=== PATIENT | female | born 1975 | race Caucasian/White ===

== ENCOUNTER 2016-11-15 09:51 | Emergency (ER) | payer OTHER ==
[~2016-11-15] VITALS: Ht 162.6 cm; Wt 74.0 kg
[~2016-11-15 09:51] MED LIST: CARV3.12 PO; FLUO20CA4 PO; GABA100C4 PO; LEVE500 PO; LORA1TAB12 PO; VENTAER INH
[2016-11-15 09:53] VITALS: BP 159/75; PULSE 99; RESP 20; TEMP 98.1; O2SAT 99
[2016-11-15] MEDS ORDERED: SODIUM CHLOR 0.9% 1000 ML INJ 1,000 ML IV SCH (10:22)
[2016-11-15] MEDS ORDERED: KETOROLAC TROMETHAMINE 30 MG/ML (IVP) VIAL IVP ONE (10:30)
[2016-11-15] MEDS ORDERED: SODIUM CHLORIDE 0.9% FLUSH 5 ML FLUSH IVF PRN (10:30)
[2016-11-15 10:50] LABS: AUTOMATED NEUTROPHIL # 3.3 TH/MM3 (1.8-7.7); BASOPHIL % 0.5 % (0.0-2.0); EOSINOPHIL # 0.4 TH/MM3 (0-0.4); HEMO FLAGS DIFF FINAL; LYMPH % 22.4 % (9.0-44.0); LYMPHOCYTE # 1.2 TH/MM3 (1.0-4.8); MEAN CELL VOLUME 92.9 FL (80.0-100.0); MEAN CORPUSCULAR HEMOGLOBIN 32.5 PG (27.0-34.0); MONO % 7.5 % (0.0-8.0); NEUT % 61.6 % (16.0-70.0); PLATELET COUNT 161 TH/MM3 (150-450); RED BLOOD COUNT 3.87 MIL/MM3 (4.00-5.30); RED CELL DISTRIBUTION WIDTH 12.6 % (11.6-17.2); WHITE BLOOD COUNT 5.4 TH/MM3 (4.0-11.0)
[2016-11-15 10:50] LABS: BACTERIA, URINE MOD /hpf; BLOOD, URINE NEG (NEG); COMMENT (UR) CULTURE INDICATED; CULTURE IF INDICATED CULTURE INDICATED; GLUCOSE,URINE NEG (NEG); KETONE, URINE NEG (NEG); MUCUS URINE FEW /lpf (OCC); NITRITE,URINE NEG (NEG); PH, URINE 5.5 (5.0-8.5); SQUAMOUS EPITHELIAL CELL URINE 4 /hpf (0-5); URINE COLOR YELLOW (YELLW/STRAW)
--- NOTE | 2016-11-15 10:59 | PD ---
HPI Chief Complaint: Flank/Kidney Pain Time Seen by Provider: 10:22 Travel History International Travel<30 days: No Contact w/Intl Traveler<30days: No Traveled to known affect area: No History of Present Illness HPI Patient 41-year-old female presents with bilateral flank pain as well as dysuria for the past few days. Patient is concerned because she has had pyelonephritis in the past and need for admission secondary to sepsis. Patient denies any nausea or vomiting. Denies history of kidney stones. Denies history of fever. Patient states symptoms began gradually worsening. Sharp in nature. PFSH Past Medical History Arthritis: Yes (OSTEOARTHRITIS) Asthma: Yes Blood Disorders: No Anxiety: Yes Depression: No Cancer: No Cardiovascular Problems: Yes (HTN) COPD: No Cerebrovascular Accident: No Diminished Hearing: No Endocrine: No Gastrointestinal Disorders: Yes (GB DISEASE) GERD: No Genitourinary: Yes Headaches: Yes Hepatitis: No Hiatal Hernia: No Hypertension: Yes (ONLY WITH PRE-ECLAMPSIA) Immune Disorder: No Implanted Vascular Access Dvce: No Kidney Stones: No Musculoskeletal: Yes Neurologic: Yes Psychiatric: Yes Reproductive: No Respiratory: Yes (ASTHMA) Migraines: No Renal Failure: No Seizures: Yes Sleep Apnea: No Ulcer: Yes Influenza Vaccination: No ?: LMP: 11/08/16 : 5 Para: 5 Tubal Ligation: Yes Past Surgical History Abdominal Surgery: Yes (COILS IN STOMACH) AICD: No Appendectomy: No Arteriovenous Shunt: No Cardiac Surgery: No Cholecystectomy: No Ear Surgery: No Endocrine Surgery: No Eye Surgery: No Genitourinary Surgery: No Gynecologic Surgery: Yes (TUBAL LIGATION) Hysterectomy: No Insulin Pump: No Joint Replacement: No Neurologic Surgery: No Oral Surgery: No Pacemaker: No Thoracic Surgery: No Other Surgery: Yes (PERF ULCER) Social History Alcohol Use: Yes (OCCASIONALLY) Tobacco Use: No Substance Use: Yes (MARIJUANA, RARELY) Allergies-Medications (Allergen,Severity, Reaction): Coded Allergies: Penicillin (Verified Allergy, Severe, CAN'T BREATHE, 08/15/16) Reported Meds & Prescriptions Reported Meds & Active Scripts Active Cipro (Ciprofloxacin HCl) 500 Mg Tab 500 Mg PO BID 7 Days Reported Ventolin Hfa 18 GM Inh (Albuterol Sulfate) 90 Mcg/Act Aer 2 Puff INH Q4H PRN Lorazepam 1 Mg Tab 1 Mg PO DAILY PRN Fluoxetine (Fluoxetine HCl) 20 Mg Cap 20 Mg PO DAILY Carvedilol 3.125 Mg Tab 3.125 Mg PO BID Keppra (Levetiracetam) 500 Mg Tab 500 Mg PO BID Gabapentin 100 Mg Cap 100 Mg PO TID Review of Systems Except as stated in HPI: all other systems reviewed are Neg Physical Exam Narrative GENERAL: Well-developed well-nourished no apparent distress SKIN: Warm and dry. HEAD: Atraumatic. Normocephalic. EYES: Pupils equal and round. No scleral icterus. No injection or drainage. ENT: No nasal bleeding or discharge. Mucous membranes pink and moist. NECK: Trachea midline. No JVD. CARDIOVASCULAR: Regular rate and rhythm. No murmur appreciated. RESPIRATORY: No accessory muscle use. Clear to auscultation. Breath sounds equal bilaterally. GASTROINTESTINAL: Abdomen soft, non-tender, nondistended. Hepatic and splenic margins not palpable. No CVA tenderness. MUSCULOSKELETAL: No obvious deformities. No clubbing. No cyanosis. No edema. NEUROLOGICAL: Awake and alert. No obvious cranial nerve deficits. Motor grossly within normal limits. Normal speech. PSYCHIATRIC: Appropriate mood and affect; insight and judgment normal. Data Data Last Documented VS Vital Signs Date Time Temp Pulse Resp B/P Pulse Ox O2 Delivery O2 Flow Rate FiO2 11/15/16 12:30 80 15 147/87 98 11/15/16 09:53 98.1 Room Air Orders Complete Blood Count With Diff (11/15/16 10:22) Comprehensive Metabolic Panel (11/15/16 10:22) Lactic Acid (11/15/16 10:22) Urinalysis - C+S If Indicated (11/15/16 10:22) Iv Access Insert/Monitor (11/15/16 10:22) Ecg Monitoring (11/15/16 10:22) Oximetry (11/15/16 10:22) Sodium Chlor 0.9% 1000 Ml Inj (Ns 1000 M (11/15/16 10:22) Sodium Chloride 0.9% Flush (Ns Flush) (11/15/16 10:30) Ketorolac Inj (Toradol Inj) (11/15/16 10:30) Ed Urine Pregnancytest Poc (11/15/16 10:22) Urine Culture (11/15/16 10:30) Ciprofloxacin (Cipro) (11/15/16 11:30) Labs Laboratory Tests Test 11/15/16 11/15/16 10:25 10:30 White Blood Count 5.4 TH/MM3 Red Blood Count 3.87 MIL/MM3 Hemoglobin 12.6 GM/DL Hematocrit 36.0 % Mean Corpuscular Volume 92.9 FL Mean Corpuscular Hemoglobin 32.5 PG Mean Corpuscular Hemoglobin 35.0 % Concent Red Cell Distribution Width 12.6 % Platelet Count 161 TH/MM3 Mean Platelet Volume 8.4 FL Neutrophils (%) (Auto) 61.6 % Lymphocytes (%) (Auto) 22.4 % Monocytes (%) (Auto) 7.5 % Eosinophils (%) (Auto) 8.0 % Basophils (%) (Auto) 0.5 % Neutrophils # (Auto) 3.3 TH/MM3 Lymphocytes # (Auto) 1.2 TH/MM3 Monocytes # (Auto) 0.4 TH/MM3 Eosinophils # (Auto) 0.4 TH/MM3 Basophils # (Auto) 0.0 TH/MM3 CBC Comment DIFF FINAL Differential Comment Sodium Level 139 MEQ/L Potassium Level 3.8 MEQ/L Chloride Level 105 MEQ/L Carbon Dioxide Level 28.0 MEQ/L Anion Gap 6 MEQ/L Blood Urea Nitrogen 11 MG/DL Creatinine 0.84 MG/DL Estimat Glomerular Filtration 74 ML/MIN Rate Random Glucose 158 MG/DL Calcium Level 8.9 MG/DL Total Bilirubin 0.7 MG/DL Aspartate Amino Transf 51 U/L (AST/SGOT) Alanine Aminotransferase 43 U/L (ALT/SGPT) Alkaline Phosphatase 130 U/L Total Protein 7.3 GM/DL Albumin 3.1 GM/DL Urine Color YELLOW Urine Turbidity HAZY Urine pH 5.5 Urine Specific [place] 1.008 Urine Protein NEG mg/dL Urine Glucose (UA) NEG mg/dL Urine Ketones NEG mg/dL Urine Occult Blood NEG Urine Nitrite NEG Urine Bilirubin NEG Urine Urobilinogen LESS THAN 2.0 MG/DL Urine Leukocyte Esterase MOD Urine RBC 1 /hpf Urine WBC 31 /hpf Urine Squamous Epithelial 4 /hpf Cells Urine Bacteria MOD /hpf Urine Mucus FEW /lpf Microscopic Urinalysis Comment CULTURE INDICATED Lactic Acid Level 1.8 mmol/L MDM Medical Decision Making Medical Screen Exam Complete: Yes Emergency Medical Condition: Yes Differential Diagnosis UTI, pyelonephritis unlikely, kidney stone unlikely. Narrative Course Patient 41-year-old female presents with a lateral flank pain, dysuria. Patient had really has no CVA tenderness this time. Labs and vital signs are reassuring. Patient does have evidence for UTI. Will be placed on ciprofloxacin. There is no indication further workup at this time. Risks of CT radiation outweigh possible diagnostic benefits. Discussed findings with patient and the plan and she is agreeable this time. Follow-up primary care physician discussed return to ED criteria. Diagnosis Primary Impression: UTI (urinary tract infection) Qualified Code: N30.00 - Acute cystitis without hematuria Med/Other Pt SpecificInfo: Prescription(s) given Scripts Ciprofloxacin (Cipro)500 Mg [id number] Mg PO BID 7 Days Ref 0 Prov:Miguel Alva MD 11/15/16 Disposition: 01 DISCHARGE HOME Condition: Stable Miguel Alva MD Nov 15, 2016 10:59
[2016-11-15 11:19] LABS: ALT (GPT) 43 U/L (10-53); ANION GAP 6 MEQ/L (5-15); AST (GOT) 51 U/L (15-37); BLOOD UREA NITROGEN 11 MG/DL (7-18); CHLORIDE 105 MEQ/L (98-107); GLOMERULAR FILTRATION RATE 74 ML/MIN (>89); POTASSIUM 3.8 MEQ/L (3.5-5.1); SODIUM (NA) 139 MEQ/L (136-145)
[2016-11-15 11:22] LABS: ALKALINE PHOSPHATASE 130 U/L (45-117); TOTAL BILIRUBIN ADULT 0.7 MG/DL (0.2-1.0)
[2016-11-15] MEDS ORDERED: CIPROFLOXACIN 500 MG TAB PO ONE (11:30)
[2016-11-15] MEDS ORDERED: CIPR-9 PO (11:34)
[2016-11-15 12:30] VITALS: BP 147/87
== END 2016-11-15 12:32 | disposition home or self-care (01) ==
LOC: NEPE 09:51
DX: N39.0 Urinary tract infection, site not specified (principal); R30.0 Dysuria; J45.909 Unspecified asthma, uncomplicated; I10 Essential (primary) hypertension; B96.1 Klebsiella pneumoniae [K. pneumoniae] as the cause of diseases classified elsewhere
CPT/HCPCS: 80053; 81001; 83605; 84703; 85025; 87077; 87086; 87186; 96374; 99284; J1885; J7030

== ENCOUNTER → 2016-11-27 21:55 | Emergency (ER) | payer OTHER ==
[~2016-11-27] VITALS: Ht 162.6 cm; Wt 75.0 kg
[~2016-11-27 21:55] MED LIST changes: +ANTA500T PO; +CIPR-9 PO; +FLUO20CA12 PO; +IBUP-232 PO; +MELO7.5T4 PO; +PROM1SUP7 RECTAL
[2016-11-27 21:58] VITALS: BP 133/85; PULSE 132; RESP 16; TEMP 98; O2SAT 98
[2016-11-28 02:04] VITALS: BP 132/84; PULSE 124; RESP 16; TEMP 98.5; O2SAT 99
== END | disposition left against medical advice (07) ==
LOC: NED 21:55
DX: Z53.21 Procedure and treatment not carried out due to patient leaving prior to being seen by health care provider (principal)
CPT/HCPCS: 99281

== ENCOUNTER 2016-12-02 20:01 | Emergency (ER) | payer SELFPAY ==
[~2016-12-02] VITALS: Ht 162.6 cm; Wt 80.0 kg
[~2016-12-02 20:01] MED LIST changes: -ANTA500T PO; -FLUO20CA12 PO; -IBUP-232 PO; -MELO7.5T4 PO; -PROM1SUP7 RECTAL
[2016-12-02 20:03] VITALS: BP 172/88; PULSE 97; RESP 16; TEMP 98; O2SAT 100
[2016-12-02] MEDS ORDERED: ANTA500T PO (22:36)
[2016-12-02] MEDS ORDERED: MELO7.5T4 PO (22:36)
[2016-12-02] MEDS ORDERED: KETOROLAC TROMETHAMINE 30 MG/ML (IVP) VIAL IV PUSH ONE (22:45)
[2016-12-02 22:53] LABS: BACTERIA, URINE RARE /hpf; BLOOD, URINE NEG (NEG); COMMENT (UR) CULT NOT INDICATED; CULTURE IF INDICATED CULT NOT INDICATED; GLUCOSE,URINE NEG (NEG); KETONE, URINE NEG (NEG); MUCUS URINE FEW /lpf (OCC); NITRITE,URINE NEG (NEG); SQUAMOUS EPITHELIAL CELL URINE 5 /hpf (0-5); URINE COLOR YELLOW (YELLW/STRAW)
[2016-12-02 22:56] LABS: AUTOMATED NEUTROPHIL # 4.7 TH/MM3 (1.8-7.7); BASOPHIL % 0.5 % (0.0-2.0); EOSINOPHIL # 0.3 TH/MM3 (0-0.4); EOSINOPHIL % 4.4 % (0.0-4.0); HEMATOCRIT 33.8 % (35.0-46.0); HEMO FLAGS DIFF FINAL; LYMPH % 23.6 % (9.0-44.0); LYMPHOCYTE # 1.7 TH/MM3 (1.0-4.8); MEAN CELL VOLUME 91.7 FL (80.0-100.0); MEAN CORPUSCULAR HEMOGLOBIN 32.6 PG (27.0-34.0); MEAN CORPUSCULAR HGB CONC 35.6 % (32.0-36.0); MONO % 6.9 % (0.0-8.0); NEUT % 64.6 % (16.0-70.0); PLATELET COUNT 185 TH/MM3 (150-450); RED BLOOD COUNT 3.69 MIL/MM3 (4.00-5.30); WHITE BLOOD COUNT 7.3 TH/MM3 (4.0-11.0)
--- NOTE | 2016-12-02 22:56 | PD ---
HPI Chief Complaint: Complaint Time Seen by Provider: 22:21 Travel History International Travel<30 days: No Contact w/Intl Traveler<30days: No Traveled to known affect area: No History of Present Illness HPI 41yo F with PMH of depression and recently diagnosed UTI presents to the ED with c/o persistent back pain. Pt had bilateral back pain and was seen on and found to have >100,000 klebsiella that was forrest sensitive. Pt was discharged with cipro for 7 days. Pt had some hot and cold chills. Denies any chest pain, sob, n/v, abdominal pain. Back pain is bilateral T10-12 area and constant, nonradiating. Denies any trauma, focal weakness or numbness. PFSH Past Medical History Arthritis: Yes Asthma: Yes Blood Disorders: No Anxiety: Yes Depression: Yes Cancer: No Cardiovascular Problems: Yes (HTN) COPD: No Cerebrovascular Accident: No Diminished Hearing: No Endocrine: No Gastrointestinal Disorders: Yes (GB DISEASE) GERD: No Genitourinary: Yes Headaches: Yes Hepatitis: No Hiatal Hernia: No Hypertension: Yes (ONLY WITH PRE-ECLAMPSIA) Immune Disorder: No Implanted Vascular Access Dvce: No Kidney Stones: No Musculoskeletal: Yes Neurologic: Yes Psychiatric: Yes Reproductive: No Respiratory: Yes (ASTHMA) Migraines: No Renal Failure: No Seizures: Yes Sleep Apnea: No Ulcer: Yes Tetanus Vaccination: > 5 Years Influenza Vaccination: No ?: Not LMP: 10/26/16 : 5 Para: 5 Miscarriage: 0 Tubal Ligation: Yes (2006) Past Surgical History Abdominal Surgery: Yes (COILS IN STOMACH) AICD: No Appendectomy: No Arteriovenous Shunt: No Cardiac Surgery: No Cholecystectomy: No Ear Surgery: No Endocrine Surgery: No Eye Surgery: No Genitourinary Surgery: No Gynecologic Surgery: Yes (TUBAL LIGATION) Hysterectomy: No Insulin Pump: No Joint Replacement: No Neurologic Surgery: No Oral Surgery: No Pacemaker: No Thoracic Surgery: No Other Surgery: Yes (PERF ULCER) Social History Alcohol Use: Yes (Daily) Tobacco Use: No Substance Use: No Allergies-Medications (Allergen,Severity, Reaction): Coded Allergies: Penicillin (Verified Allergy, Severe, CAN'T BREATHE, 12/02/16) Reported Meds & Prescriptions Reported Meds & Active Scripts Active Reported Antabuse (Disulfiram) 500 Mg Tab 500 Mg PO DAILY Meloxicam 7.5 Mg Tab 7.5 Mg PO DAILY PRN Ventolin Hfa 18 GM Inh (Albuterol Sulfate) 90 Mcg/Act Aer 2 Puff INH Q4H PRN Lorazepam 1 Mg Tab 1 Mg PO DAILY PRN Fluoxetine (Fluoxetine HCl) 20 Mg Cap 20 Mg PO DAILY Carvedilol 3.125 Mg Tab 3.125 Mg PO BID Keppra (Levetiracetam) 500 Mg Tab 500 Mg PO BID Gabapentin 100 Mg Cap 100 Mg PO TID Review of Systems Except as stated in HPI: all other systems reviewed are Neg Physical Exam Narrative GENERAL: 41yo F not in distress. SKIN: Warm and dry. HEAD: Atraumatic. Normocephalic. EYES: Pupils equal and round. No scleral icterus. No injection or drainage. ENT: No nasal bleeding or discharge. Mucous membranes pink and moist. NECK: Trachea midline. No JVD. CARDIOVASCULAR: Regular rate and rhythm. No murmur appreciated. RESPIRATORY: No accessory muscle use. Clear to auscultation. Breath sounds equal bilaterally. GASTROINTESTINAL: Abdomen soft, non-tender, nondistended. No rebound tenderness or guarding. BACK: No midline ttp thoracic or lumbar spine. No CVA tenderness bilaterally. +TTP paraspinal muscle T10-12. MUSCULOSKELETAL: No obvious deformities. No clubbing. No cyanosis. No edema. NEUROLOGICAL: Awake and alert. No obvious cranial nerve deficits. Motor grossly within normal limits. Normal speech. PSYCHIATRIC: Appropriate mood and affect; insight and judgment normal. Data Data Last Documented VS Vital Signs Date Time Temp Pulse Resp B/P Pulse Ox O2 Delivery O2 Flow Rate FiO2 12/02/16 22:14 20 12/02/16 20:03 98.0 97 172/88 100 Orders Complete Blood Count With Diff (12/02/16 22:32) Basic Metabolic Panel (Bmp) (12/02/16 22:32) Urinalysis - C+S If Indicated (12/02/16 22:32) Ed Urine Pregnancytest Poc (12/02/16 22:32) Ketorolac Inj (Toradol Inj) (12/02/16 22:45) Labs Laboratory Tests Test 12/02/16 12/02/16 22:30 22:40 Urine Color YELLOW Urine Turbidity HAZY Urine pH 6.0 Urine Specific [place] 1.007 Urine Protein NEG mg/dL Urine Glucose (UA) NEG mg/dL Urine Ketones NEG mg/dL Urine Occult Blood NEG Urine Nitrite NEG Urine Bilirubin NEG Urine Urobilinogen 2.0 MG/DL Urine Leukocyte Esterase NEG Urine RBC 1 /hpf Urine WBC 2 /hpf Urine Squamous Epithelial 5 /hpf Cells Urine Bacteria RARE /hpf Urine Mucus FEW /lpf Microscopic Urinalysis Comment CULT NOT INDICATED White Blood Count 7.3 TH/MM3 Red Blood Count 3.69 MIL/MM3 Hemoglobin 12.0 GM/DL Hematocrit 33.8 % Mean Corpuscular Volume 91.7 FL Mean Corpuscular Hemoglobin 32.6 PG Mean Corpuscular Hemoglobin 35.6 % Concent Red Cell Distribution Width 13.0 % Platelet Count 185 TH/MM3 Mean Platelet Volume 8.7 FL Neutrophils (%) (Auto) 64.6 % Lymphocytes (%) (Auto) 23.6 % Monocytes (%) (Auto) 6.9 % Eosinophils (%) (Auto) 4.4 % Basophils (%) (Auto) 0.5 % Neutrophils # (Auto) 4.7 TH/MM3 Lymphocytes # (Auto) 1.7 TH/MM3 Monocytes # (Auto) 0.5 TH/MM3 Eosinophils # (Auto) 0.3 TH/MM3 Basophils # (Auto) 0.0 TH/MM3 CBC Comment DIFF FINAL Differential Comment Sodium Level 141 MEQ/L Potassium Level 3.7 MEQ/L Chloride Level 107 MEQ/L Carbon Dioxide Level 25.5 MEQ/L Anion Gap 9 MEQ/L Blood Urea Nitrogen 9 MG/DL Creatinine 0.84 MG/DL Estimat Glomerular Filtration 74 ML/MIN Rate Random Glucose 110 MG/DL Calcium Level 8.8 MG/DL [facility] Medical Decision Making Medical Screen Exam Complete: Yes Emergency Medical Condition: Yes Differential Diagnosis Musculoskeletal pain vs. pyelonephritis vs. nephrolithiasis Narrative Course 41yo F with bilateral back pain that seems very musculoskeletal. Pt had recent UTI that was treated and currently does not have any urinary complaints. Pt also does not have CVA tenderness on exam. Labs reviewed, no leukocytosis. Creatinine normal. UA showed no leukocyte. No nitrite. Culture not indicated. No blood. Pt had no fall, trauma and no neurologic deficits. Denies any IVDA and has no midline ttp. No red flags. Pt given toradol and valium which improved pain. Diagnosis Primary Impression: Back pain Qualified Code: M54.6 - Bilateral thoracic back pain, unspecified chronicity Patient Instructions: General Instructions Departure Forms: Tests/Procedures Additional Instructions: Please follow up with your PMD in 3-7 days. Return to the ED if symptoms worsen. Med/Other Pt SpecificInfo: Prescription(s) given Scripts Ibuprofen 600 Mg [id number] Mg PO Q8HR PRN (PAIN) #20 TAB Ref 0 Prov:Mariela Blue DO 12/03/16 Disposition: 01 DISCHARGE HOME Condition: Stable Mariela Blue DO Dec 02, 2016 22:56
[2016-12-02 23:18] LABS: BICARBONATE 25.5 MEQ/L (21.0-32.0); POTASSIUM 3.7 MEQ/L (3.5-5.1)
[2016-12-03] MEDS ORDERED: DIAZEPAM 5 MG TAB PO ONE (00:15)
[2016-12-03] MEDS ORDERED: IBUP-232 PO (00:17)
== END 2016-12-03 01:00 | disposition home or self-care (01) ==
LOC: NEPA 20:01
DX: M54.9 Dorsalgia, unspecified (principal); I10 Essential (primary) hypertension
CPT/HCPCS: 80048; 81001; 84703; 85025; 96374; 99283; J1885

== ENCOUNTER 2016-12-08 21:28 | Emergency (ER) | payer SELFPAY ==
[~2016-12-08] VITALS: Ht 162.6 cm; Wt 75.0 kg
[~2016-12-08 21:28] MED LIST changes: +ANTA500T PO; -CIPR-9 PO; +IBUP-232 PO; +MELO7.5T4 PO
[2016-12-08 21:30] VITALS: BP 137/82; PULSE 111; RESP 16; TEMP 98.2; O2SAT 99
[2016-12-09 01:10] VITALS: BP 125/78; PULSE 68; RESP 16; O2SAT 99
[2016-12-09] MEDS ORDERED: SODIUM CHLORIDE 0.9% FLUSH 5 ML FLUSH IVF PRN ×2 (01:15→01:45)
[2016-12-09] MEDS ORDERED: SODIUM CHLOR 0.9% 1000 ML INJ 1,000 ML IV SCH (01:42)
[2016-12-09] MEDS ORDERED: ONDANSETRON HCL 4 MG/2 ML VIAL IVP ONE (01:45)
[2016-12-09 02:04] LABS: AUTOMATED NEUTROPHIL # 3.9 TH/MM3 (1.8-7.7); BASOPHIL % 0.5 % (0.0-2.0); EOSINOPHIL # 0.2 TH/MM3 (0-0.4); EOSINOPHIL % 3.2 % (0.0-4.0); HEMATOCRIT 34.6 % (35.0-46.0); HEMO FLAGS DIFF FINAL; LYMPH % 32.2 % (9.0-44.0); LYMPHOCYTE # 2.3 TH/MM3 (1.0-4.8); MEAN CORPUSCULAR HEMOGLOBIN 31.7 PG (27.0-34.0); MEAN CORPUSCULAR HGB CONC 34.1 % (32.0-36.0); MONO % 9.3 % (0.0-8.0); NEUT % 54.8 % (16.0-70.0); PLATELET COUNT 235 TH/MM3 (150-450); RED BLOOD COUNT 3.72 MIL/MM3 (4.00-5.30); RED CELL DISTRIBUTION WIDTH 13.5 % (11.6-17.2); WHITE BLOOD COUNT 7.2 TH/MM3 (4.0-11.0)
[2016-12-09 02:06] LABS: BACTERIA, URINE RARE /hpf; BLOOD, URINE NEG (NEG); GLUCOSE,URINE NEG (NEG); HYALINE CAST, URINE 1 /lpf (RARE); KETONE, URINE NEG (NEG); MUCUS URINE FEW /lpf (OCC); NITRITE,URINE NEG (NEG); PH, URINE 5.5 (5.0-8.5); SQUAMOUS EPITHELIAL CELL URINE <1 /hpf (0-5); URINE COLOR YELLOW (YELLW/STRAW)
[2016-12-09 02:18] LABS: POTASSIUM 4.6 MEQ/L (3.5-5.1)
[2016-12-09] MEDS ORDERED: CIPR-9 PO (02:40)
[2016-12-09] MEDS ORDERED: PROM1SUP7 RECTAL (02:44)
[2016-12-09] MEDS ORDERED: cefTRIAXone INJ 1,000 MG in SODIUM CHLORIDE 0.9% INJ 100 ML IV ONE (02:45)
--- NOTE | 2016-12-09 02:45 | PD ---
HPI Chief Complaint: Complaint Time Seen by Provider: 01:02 Travel History International Travel<30 days: No Contact w/Intl Traveler<30days: No Traveled to known affect area: No History of Present Illness HPI The patient is 41 she is 5 para 5 last menstruation week ago and normal. She reports dysuria and frequency for about 3 days. She also reports feeling: Fatigue with hypersomnia. She reports flank pain on the right side. She vomited once last night. She's had no diarrhea. She's had no vaginal bleeding or discharge and some abnormal for her. PFSH Past Medical History Arthritis: Yes Asthma: Yes Blood Disorders: No Anxiety: Yes Depression: Yes Cancer: No Cardiovascular Problems: Yes (TACHY) COPD: No Cerebrovascular Accident: No Diminished Hearing: No Endocrine: No Gastrointestinal Disorders: Yes (GB DISEASE) GERD: No Genitourinary: Yes Headaches: Yes Hepatitis: No Hiatal Hernia: No Hypertension: Yes (ONLY WITH PRE-ECLAMPSIA) Immune Disorder: No Implanted Vascular Access Dvce: No Kidney Stones: No Musculoskeletal: Yes Neurologic: Yes Psychiatric: Yes Reproductive: No Respiratory: Yes (ASTHMA) Migraines: No Renal Failure: No Seizures: Yes Sleep Apnea: No Ulcer: Yes Tetanus Vaccination: < 5 Years Influenza Vaccination: No ?: Not LMP: 12/01/16 : 5 Para: 5 Miscarriage: 0 Tubal Ligation: Yes (2006) Past Surgical History Abdominal Surgery: Yes (COILS IN STOMACH) AICD: No Appendectomy: No Arteriovenous Shunt: No Cardiac Surgery: No Cholecystectomy: No Ear Surgery: No Endocrine Surgery: No Eye Surgery: No Genitourinary Surgery: No Gynecologic Surgery: Yes (TUBAL LIGATION) Hysterectomy: No Insulin Pump: No Joint Replacement: No Neurologic Surgery: No Oral Surgery: No Pacemaker: No Thoracic Surgery: No Other Surgery: Yes (PERF ULCER) Social History Alcohol Use: Yes (Daily) Tobacco Use: No Substance Use: No Allergies-Medications (Allergen,Severity, Reaction): Coded Allergies: Penicillin (Verified Allergy, Severe, CAN'T BREATHE, 12/08/16) Reported Meds & Prescriptions Reported Meds & Active Scripts Active Ibuprofen 600 Mg Tab 600 Mg PO Q8HR PRN Reported Antabuse (Disulfiram) 500 Mg Tab 500 Mg PO DAILY Meloxicam 7.5 Mg Tab 7.5 Mg PO DAILY PRN Ventolin Hfa 18 GM Inh (Albuterol Sulfate) 90 Mcg/Act Aer 2 Puff INH Q4H PRN Lorazepam 1 Mg Tab 1 Mg PO DAILY PRN Fluoxetine (Fluoxetine HCl) 20 Mg Cap 20 Mg PO DAILY Carvedilol 3.125 Mg Tab 3.125 Mg PO BID Keppra (Levetiracetam) 500 Mg Tab 500 Mg PO BID Gabapentin 100 Mg Cap 100 Mg PO TID Review of Systems Except as stated in HPI: all other systems reviewed are Neg Physical Exam Narrative GENERAL: 41 yo F, WNWD, lying lateral recumbent, speaking sentences SKIN: Warm and dry. HEAD: Atraumatic. Normocephalic. EYES: Pupils equal and round. No scleral icterus. No injection or drainage. ENT: No nasal bleeding or discharge. Mucous membranes pink and moist. NECK: Trachea midline. No JVD. CARDIOVASCULAR: Regular rate and rhythm. RESPIRATORY: No accessory muscle use. Clear to auscultation. Breath sounds equal bilaterally. GASTROINTESTINAL: Abdomen soft, non-tender, nondistended. Hepatic and splenic margins not palpable. Pt reports flank tenderness. MUSCULOSKELETAL: Extremities without clubbing, cyanosis, or edema. No obvious deformities. NEUROLOGICAL: Awake and alert. No obvious cranial nerve deficits. Motor grossly within normal limits. Five out of 5 muscle strength in the arms and legs. Normal speech. PSYCHIATRIC: Appropriate mood and affect; insight and judgment normal. Data Data Last Documented VS Vital Signs Date Time Temp Pulse Resp B/P Pulse Ox O2 Delivery O2 Flow Rate FiO2 12/09/16 01:10 68 16 125/78 99 Room Air 12/08/16 21:30 98.2 VS reviewed Orders Ua Includes Microscopic (12/09/16 01:03) Sodium Chloride 0.9% Flush (Ns Flush) (12/09/16 01:15) Ed Urine Pregnancytest Poc (12/09/16 01:03) Complete Blood Count With Diff (12/09/16 01:42) Iv Access Insert/Monitor (12/09/16 01:42) Ecg Monitoring (12/09/16 01:42) Oximetry (12/09/16 01:42) Ondansetron Inj (Zofran Inj) (12/09/16 01:45) Sodium Chlor 0.9% 1000 Ml Inj (Ns 1000 M (12/09/16 01:42) Sodium Chloride 0.9% Flush (Ns Flush) (12/09/16 01:45) Influenzae A/B Antigen (12/09/16 01:42) Basic Metabolic Panel (Bmp) (12/09/16 01:42) Labs Laboratory Tests Test 12/09/16 12/09/16 01:15 01:55 Urine Color YELLOW Urine Turbidity HAZY Urine pH 5.5 Urine Specific [place] 1.011 Urine Protein NEG mg/dL Urine Glucose (UA) NEG mg/dL Urine Ketones NEG mg/dL Urine Occult Blood NEG Urine Nitrite NEG Urine Bilirubin NEG Urine Urobilinogen LESS THAN 2.0 MG/DL Urine Leukocyte Esterase MOD Urine RBC LESS THAN 1 /hpf Urine WBC 20 /hpf Urine Squamous Epithelial <1 /hpf Cells Urine Bacteria RARE /hpf Urine Hyaline Casts 1 /lpf Urine Mucus FEW /lpf White Blood Count 7.2 TH/MM3 Red Blood Count 3.72 MIL/MM3 Hemoglobin 11.8 GM/DL Hematocrit 34.6 % Mean Corpuscular Volume 93.0 FL Mean Corpuscular Hemoglobin 31.7 PG Mean Corpuscular Hemoglobin 34.1 % Concent Red Cell Distribution Width 13.5 % Platelet Count 235 TH/MM3 Mean Platelet Volume 8.1 FL Neutrophils (%) (Auto) 54.8 % Lymphocytes (%) (Auto) 32.2 % Monocytes (%) (Auto) 9.3 % Eosinophils (%) (Auto) 3.2 % Basophils (%) (Auto) 0.5 % Neutrophils # (Auto) 3.9 TH/MM3 Lymphocytes # (Auto) 2.3 TH/MM3 Monocytes # (Auto) 0.7 TH/MM3 Eosinophils # (Auto) 0.2 TH/MM3 Basophils # (Auto) 0.0 TH/MM3 CBC Comment DIFF FINAL Differential Comment Sodium Level 141 MEQ/L Potassium Level 4.6 MEQ/L Chloride Level 108 MEQ/L Carbon Dioxide Level 25.0 MEQ/L Anion Gap 8 MEQ/L Blood Urea Nitrogen 7 MG/DL Creatinine 0.81 MG/DL Estimat Glomerular Filtration 77 ML/MIN Rate Random Glucose 99 MG/DL Calcium Level 8.8 MG/DL MDM Medical Decision Making Medical Screen Exam Complete: Yes Emergency Medical Condition: Yes Medical Record Reviewed: Yes Differential Diagnosis Constipation, Gastritis, Acute Cholecystitis, Biliary Colic, Pancreatitis, SANON , Hepatitis, Bowel Obstruction, Cystitis, Mesenteric Ischemia, AAA, Appendicitis , Renal Stone/Hydronephrosis, GERD, perforated viscous Narrative Course Pt has cystitis. Rocephin given here. We'll provide course cipro. Prior urine microbiology's revealed Klebsiella pneumonia urine with pansensitive isolates. CBC & BMP Diagram 12/09/16 01:55 Urinalysis shows UTI IV fluids given. Rocephin given. Patient ready for discharge. Diagnosis Primary Impression: Cystitis Additional Impression: Vomiting Qualified Code: R11.10 - Vomiting, intractability of vomiting not specified, presence of nausea not specified, unspecified vomiting type Referrals: Corey Johnson MD 2 days Additional Instructions: You have a choice when it comes to health care, and we are glad that you chose [email or web address]. Hopefully, we have met your expectations on today's visit. You are welcome to return to [email or web address] at any time, as we are committed to meeting the health care needs of our community. Med/Other Pt SpecificInfo: Prescription(s) given Scripts Promethazine Supp (Phenergan Supp)25 Mg Supp25 Mg RECTAL Q6H PRN (NAUSEA OR VOMITING) #20 SUPP Ref 0 Prov:Geovani Sen MD 12/09/16 Ciprofloxacin (Cipro)500 Mg [id number] Mg PO BID 7 Days Ref 0 Prov:Geovani Sen MD 12/09/16 Disposition: DISCHARGE HOME Condition: Stable Geovani Sen MD Dec 09, 2016 02:45
== END 2016-12-09 03:33 | disposition home or self-care (01) ==
LOC: NEPE 21:28
DX: N30.90 Cystitis, unspecified without hematuria (principal); R11.2 Nausea with vomiting, unspecified; J45.909 Unspecified asthma, uncomplicated
CPT/HCPCS: 80048; 81001; 84703; 85025; 87804; 96374; 96375; 99283; J0696; J2405; J7030

== ENCOUNTER 2017-03-03 22:30 | Observation (INO) | payer MEDICAID, OTHER ==
[~2017-03-03] VITALS: Ht 162.6 cm; Wt 73.0 kg
[~2017-03-03 22:30] MED LIST changes: +CIPR-9 PO; +PROM1SUP7 RECTAL
[2017-03-03 22:38] VITALS: BP 118/69; PULSE 96; RESP 18; TEMP 98.3; O2SAT 96
[2017-03-03] MEDS ORDERED: FLUO20CA12 PO (22:46)
[2017-03-03] MEDS ORDERED: SODIUM CHLOR 0.9% 1000 ML INJ 1,000 ML IV ONE (22:56)
[2017-03-03 22:58] VITALS: O2SAT 99
[2017-03-03] MEDS ORDERED: SODIUM CHLORIDE 0.9% FLUSH 10 ML FLUSH IVF PRN (23:00)
[2017-03-03] MEDS ORDERED: ACTIVATED CHARCOAL LIQUID 25 GM/120 ML BTL PO/NG ONE (23:00)
[2017-03-03] MEDS ORDERED: ONDANSETRON HCL 4 MG/2 ML VIAL IV ONE (23:15)
[2017-03-03] MEDS ORDERED: KETOROLAC TROMETHAMINE 30 MG/ML (IVP) VIAL IVP ONE (23:15)
--- NOTE | 2017-03-03 23:16 | PD ---
HPI Chief Complaint: Psychiatric Symptoms Time Seen by Provider: 23:02 Travel History International Travel<30 days: No Contact w/Intl Traveler<30days: No Traveled to known affect area: No History of Present Illness HPI So 41 year-old woman, presents to the emergency department after overdose. She is a history depression and anxiety. States she was feeling worse today because of interactions with her children. She states she took a handful of the dog's seizure medicines, approximately 6 pills of 32.4 mg phenobarbital. She states that she was hoping to "go to sleep and not wake up". She told her older son who is 24 when she had gone and so they called EMS. This was within the past hour or so. She has no history of previous suicide attempts or overdoses. She does drink most days. She has had withdrawal symptoms in the past. She was drinking today, reportedly 2-3 beers. History Past Medical History Narrative Medical Asthma Seizures Alcoholism : 5 Para: 5 Social History Alcohol Use: No Tobacco Use: No Allergies-Medications (Allergen,Severity, Reaction): Coded Allergies: Penicillin (Verified Allergy, Severe, CAN'T BREATHE, 03/03/17) Reported Meds & Prescriptions Reported Meds & Active Scripts Active Ibuprofen 600 Mg Tab 600 Mg PO Q8HR PRN Reported Fluoxetine (Fluoxetine HCl) 20 Mg Capsule 20 Mg PO DAILY Antabuse (Disulfiram) 500 Mg Tab 500 Mg PO DAILY Meloxicam 7.5 Mg Tab 7.5 Mg PO DAILY PRN Ventolin Hfa 18 GM Inh (Albuterol Sulfate) 90 Mcg/Act Aer 2 Puff INH Q4H PRN Lorazepam 1 Mg Tab 1 Mg PO DAILY PRN Carvedilol 3.125 Mg Tab 3.125 Mg PO BID Keppra (Levetiracetam) 500 Mg Tab 500 Mg PO BID Gabapentin 100 Mg Cap 100 Mg PO TID Review of Systems Except as stated in HPI: all other systems reviewed are Neg Physical Exam Narrative GENERAL: Well-appearing 41-year-old woman, no acute distress. SKIN: Focused skin assessment warm/dry. HEAD: Atraumatic. Normocephalic. EYES: Pupils equal and round. No scleral icterus. No injection or drainage. ENT: No nasal bleeding or discharge. Mucous membranes pink and moist. NECK: Trachea midline. No JVD. CARDIOVASCULAR: Regular rate and rhythm. No murmur appreciated. RESPIRATORY: No accessory muscle use. Clear to auscultation. Breath sounds equal bilaterally. GASTROINTESTINAL: Abdomen soft, non-tender, nondistended. Hepatic and splenic margins not palpable. MUSCULOSKELETAL: No obvious deformities. No clubbing. No cyanosis. No edema. NEUROLOGICAL: Awake and alert. No obvious cranial nerve deficits. Motor grossly within normal limits. Normal speech. PSYCHIATRIC: Tearful and sad. Data Data Last Documented VS Vital Signs Date Time Temp Pulse Resp B/P Pulse Ox O2 Delivery O2 Flow Rate FiO2 03/03/17 23:49 99 18 108/60 99 Room Air 03/03/17 22:38 98.3 Orders Electrocardiogram (03/03/17 22:56) Complete Blood Count With Diff (03/03/17 22:56) Comprehensive Metabolic Panel (03/03/17 22:56) Prothrombin Time / Inr (Pt) (03/03/17 22:56) Act Partial Throm Time (Ptt) (03/03/17 22:56) Urinalysis - C+S If Indicated (03/03/17 22:56) Iv Access Insert/Monitor (03/03/17 22:56) Ecg Monitoring (03/03/17 22:56) Oximetry (03/03/17 22:56) Charcoal Activated Liq (Actidose-Aqua Li (03/03/17 23:00) Sodium Chloride 0.9% Flush (Ns Flush) (03/03/17 23:00) Sodium Chlor 0.9% 1000 Ml Inj (Ns 1000 M (03/03/17 22:56) Call Poison Control (03/03/17 22:56) Drug Screen, Random Urine (03/03/17 22:56) Alcohol (Ethanol) (03/03/17 22:56) Salicylates (Aspirin) (03/03/17 22:56) Tylenol (Acetaminophen) (03/03/17 22:56) Ed Urine Pregnancytest Poc (03/03/17 23:02) Ondansetron Inj (Zofran Inj) (03/03/17 23:15) Ketorolac Inj (Toradol Inj) (03/03/17 23:15) Phenobarbital (03/03/17 23:22) Admit Order (Ed Use Only) (03/04/17 ) Labs Laboratory Tests Test 03/03/17 03/03/17 03/03/17 23:22 23:30 23:32 White Blood Count 7.0 TH/MM3 Red Blood Count 3.78 MIL/MM3 Hemoglobin 11.7 GM/DL Hematocrit 34.9 % Mean Corpuscular Volume 92.5 FL Mean Corpuscular Hemoglobin 30.9 PG Mean Corpuscular Hemoglobin 33.4 % Concent Red Cell Distribution Width 13.3 % Platelet Count 155 TH/MM3 Mean Platelet Volume 8.0 FL Neutrophils (%) (Auto) 38.8 % Lymphocytes (%) (Auto) 42.4 % Monocytes (%) (Auto) 8.0 % Eosinophils (%) (Auto) 9.8 % Basophils (%) (Auto) 1.0 % Neutrophils # (Auto) 2.7 TH/MM3 Lymphocytes # (Auto) 3.0 TH/MM3 Monocytes # (Auto) 0.6 TH/MM3 Eosinophils # (Auto) 0.7 TH/MM3 Basophils # (Auto) 0.1 TH/MM3 CBC Comment DIFF FINAL Differential Comment Prothrombin Time 10.9 SEC Prothromb Time International 1.0 RATIO Ratio Activated Partial 28.1 SEC Thromboplast Time Sodium Level 138 MEQ/L Potassium Level 4.2 MEQ/L Chloride Level 105 MEQ/L Carbon Dioxide Level 22.3 MEQ/L Blood Urea Nitrogen 10 MG/DL Creatinine 0.55 MG/DL Random Glucose 103 MG/DL Calcium Level 8.0 MG/DL Total Bilirubin 0.5 MG/DL Aspartate Amino Transf 40 U/L (AST/SGOT) Alanine Aminotransferase 34 U/L (ALT/SGPT) Alkaline Phosphatase 112 U/L Total Protein 6.8 GM/DL Albumin 3.1 GM/DL Salicylates Level LESS THAN 1.7 MG/DL Anion Gap 11 MEQ/L Estimat Glomerular Filtration 121 ML/MIN Rate Acetaminophen Level LESS THAN 2.0 MCG/ML Phenobarbital Level 3.7 MCG/ML Ethyl Alcohol Level 258 MG/DL Urine Opiates Screen NEG Urine Barbiturates Screen NEG Urine Amphetamines Screen NEG Urine Benzodiazepines Screen NEG Urine Cocaine Screen NEG Urine Cannabinoids Screen NEG Urine Color YELLOW Urine Turbidity CLEAR Urine pH 5.0 Urine Specific [place] 1.002 Urine Protein NEG mg/dL Urine Glucose (UA) NEG mg/dL Urine Ketones NEG mg/dL Urine Occult Blood NEG Urine Nitrite NEG Urine Bilirubin NEG Urine Urobilinogen LESS THAN 2.0 MG/DL Urine Leukocyte Esterase TRACE Urine RBC 1 /hpf Urine WBC 2 /hpf Urine Squamous Epithelial <1 /hpf Cells Urine Bacteria FEW /hpf Microscopic Urinalysis Comment CULT NOT INDICATED MDM Medical Decision Making Medical Screen Exam Complete: Yes Emergency Medical Condition: Yes Interpretation(s) My review of EKG: Sinus tachycardia rate of 100, normal axis, normal intervals, no acute ischemia. QRS is 90, QTC 394. LABS: CBC is unremarkable. CMP is unremarkable. Coags unremarkable UA is unremarkable. Phenobarbital 3.7 Alcohol 258 Differential Diagnosis Overdose, suicidality, depression, alcoholism, other Narrative Course Medical decision making Is a 40 year-old woman with a intentional phenobarbital overdose. We'll need serial labs, EKG, psychiatric evaluation. We'll check initial labs, charcoal was recommended by poison control, and admission. FINAL: Patient will need serial labs for monitoring phenobarbital level. Patient will be admitted for psychiatric evaluation and monitoring. Diagnosis Primary Impression: Intentional phenobarbital overdose Additional Impression: Attempted suicide Rudolph Gama MD Mar 03, 2017 23:16
[2017-03-03 23:31] LABS: AUTOMATED NEUTROPHIL # 2.7 TH/MM3 (1.8-7.7); BASOPHIL # 0.1 TH/MM3 (0-0.2); EOSINOPHIL # 0.7 TH/MM3 (0-0.4); EOSINOPHIL % 9.8 % (0.0-4.0); HEMATOCRIT 34.9 % (35.0-46.0); HEMO FLAGS DIFF FINAL; LYMPH % 42.4 % (9.0-44.0); MEAN CELL VOLUME 92.5 FL (80.0-100.0); MEAN CORPUSCULAR HEMOGLOBIN 30.9 PG (27.0-34.0); MEAN CORPUSCULAR HGB CONC 33.4 % (32.0-36.0); NEUT % 38.8 % (16.0-70.0); PLATELET COUNT 155 TH/MM3 (150-450); RED BLOOD COUNT 3.78 MIL/MM3 (4.00-5.30); RED CELL DISTRIBUTION WIDTH 13.3 % (11.6-17.2)
[2017-03-03 23:40] LABS: APTT (PATIENT) 28.1 SEC (24.3-30.1); PROTHROMBIN TIME - PATIENT 10.9 SEC (9.8-11.6)
[2017-03-03 23:47] LABS: ANION GAP 11 MEQ/L (5-15); AST (GOT) 40 U/L (15-37); BICARBONATE 22.3 MEQ/L (21.0-32.0); BLOOD UREA NITROGEN 10 MG/DL (7-18); CHLORIDE 105 MEQ/L (98-107); GLOMERULAR FILTRATION RATE 121 ML/MIN (>89); POTASSIUM 4.2 MEQ/L (3.5-5.1); SODIUM (NA) 138 MEQ/L (136-145)
[2017-03-03 23:49] VITALS: BP 108/60; PULSE 99; RESP 18; O2SAT 99
[2017-03-03 23:49] LABS: ACETAMINOPHEN LESS THAN 2.0 MCG/ML (10.0-30.0); ALT (GPT) 34 U/L (10-53)
[2017-03-03 23:50] LABS: ALKALINE PHOSPHATASE 112 U/L (45-117); TOTAL BILIRUBIN ADULT 0.5 MG/DL (0.2-1.0)
[2017-03-04] VITALS (10 sets, daily range): BP systolic 100–152; BP diastolic 60–90; PULSE 66–103; RESP 16–18; TEMP 98–98.4; O2SAT 94–99
[2017-03-04 00:02] LABS: BACTERIA, URINE FEW /hpf; BLOOD, URINE NEG (NEG); COMMENT (UR) CULT NOT INDICATED; CULTURE IF INDICATED CULT NOT INDICATED; GLUCOSE,URINE NEG (NEG); KETONE, URINE NEG (NEG); NITRITE,URINE NEG (NEG); SQUAMOUS EPITHELIAL CELL URINE <1 /hpf (0-5); URINE COLOR YELLOW (YELLW/STRAW)
[2017-03-04 00:03] LABS: PHENOBARBITAL 3.7 MCG/ML (15.0-40.0)
[2017-03-04 00:13] LABS: AMPHETAMINE, URINE NEG (NEG); BARBITURATES, URINE NEG (NEG); COCAINE, URINE NEG (NEG)
[2017-03-04] MEDS ORDERED: LORazepam 2 MG/ML VIAL IV PUSH PRN ×4 (02:00)
[2017-03-04] MEDS ORDERED: LORazepam 2 MG TAB PO PRN (02:00)
[2017-03-04] MEDS ORDERED: SODIUM CHLORIDE 0.9% FLUSH 10 ML FLUSH IV FLUSH PRN (02:00)
[2017-03-04] MEDS ORDERED: ACETAMINOPHEN 325 MG TAB PO PRN (02:00)
[2017-03-04] MEDS ORDERED: SENNOSIDES 8.6 MG TAB PO PRN (02:00)
[2017-03-04] MEDS ORDERED: FLUMAZENIL 0.5 MG/5 ML VIAL IV PUSH PRN (02:00)
[2017-03-04] MEDS ORDERED: NALOXONE HCL 0.4 MG/ML AMP IV PRN (02:00)
[2017-03-04] MEDS ORDERED: ONDANSETRON HCL 4 MG/2 ML VIAL IVP PRN (02:00)
[2017-03-04] MEDS: SODIUM CHLOR 0.9% 1000 ML INJ 1,000 ML IV SCH ×3 (03:23→21:59)
[2017-03-04] MEDS: LORazepam 1 MG TAB PO PRN ×2 (03:27→10:04)
--- NOTE | 2017-03-04 07:57 | EKG ---
Date Performed: 03/04/2017 Time Performed: 02:22:07 PTAGE: 41 years EKG: Sinus rhythm NORMAL ECG NO SIGNIFICANT CHANGE FROM PRIOR ELECTROCARDIOGRAM. PREVIOUS TRACING : 03/03/2017 22.46 DOCTOR: Anton Lim Interpretating Date/Time 03/04/2017 07:55:26
--- NOTE | 2017-03-04 07:59 | EKG ---
Date Performed: 03/03/2017 Time Performed: 22:46:02 PTAGE: 41 years EKG: SINUS TACHYCARDIA ABNORMAL RHYTHM ECG COMPARED TO PRIOR ELECTROCARDIOGRAM, Borderline ST se gment changes have improved. PREVIOUS TRACING : 06/05/2016 21.25 DOCTOR: Anton Lim Interpretating Date/Time 03/04/2017 07:59:08
--- NOTE | 2017-03-04 08:56 | HHI.HP ---
[facility] Primary [facility] Physician Corey Johnson M.D. Admission Diagnosis phenobarbital overdose, suicidality Diagnoses: Chief Complaint: intentional overdose Travel History International Travel<30 Days: No Contact w/Intl Traveler <30 Da: No Traveled to Known Affected Are: No History of Present Illness This a 41-year-old white female with significant past medical history of seizures, alcohol abuse, asthma, hypertension, cirrhosis. Patient presented to the emergency room after overdose. Patient has a history of depression and anxiety, indicates that she was having a bad day with her children and took a handful of the dog seizure medications. She took approximately 6 pills of phenobarbital 32 mg tabs. Indicates that she wasn't intending to harm herself but just wanted to "go to sleep and not wake up". She informed her 24-year-old son who called EMS. Patient indicates that she drinks sometimes more heavily than others, approximately 2-3 beers. Her last drink was yesterday. She's been in rehabilitation before and was sober for 18 months but then started drinking approximately 8 months ago. She is on Antabuse. She denies any illegal drug use. She has had withdrawal symptoms in the past. Denies any prior suicide attempt, has never been admitted to mental health unit. Patient has no other complaints, no fever, no chills, no chest pain, shortness of breath. At this time she is still feeling sleepy but is able to answer questions appropriately, no respiratory distress, sats are 98% on room air. In the emergency room, patient was evaluated, phenobarbital level was 3.7, alcohol was 258. EKG shows sinus tachycardia, QRS 90, QTC 394. Poison control was contacted and she was given charcoal. Most recent phenobarbital level is 2.2. Sitter is at bedside. Patient is admitted for further evaluation and treatment. Review of Systems Constitutional: DENIES: Diaphoretic episodes, Fatigue, Fever, Weight gain, Weight loss, Chills, Dizziness, Change in appetite, Night Sweats Endocrine: DENIES: Abnorml menstrual pattern, Heat/cold intolerance, Polydipsia , Polyuria, Polyphagia Eyes: DENIES: Blurred vision, Diplopia, Eye inflammation, Eye pain, Vision loss , Photosensitivity, Double Vision Ears, nose, mouth, throat: DENIES: Tinnitus, Hearing loss, Vertigo, Nasal discharge, Oral lesions, Throat pain, Hoarseness, Ear Pain, Running Nose, Epistaxis, Sinus Pain, Toothache, Odynophagia Respiratory: DENIES: Apneas, Cough, Snoring, Wheezing, Hemoptysis, Sputum production, Shortness of breath Cardiovascular: DENIES: Chest pain, Palpitations, Syncope, Dyspnea on Exertion , PND, Lower Extremity Edema, Orthopnea, Claudication Gastrointestinal: DENIES: Abdominal pain, Black stools, Bloody stools, Constipation, Diarrhea, Nausea, Vomiting, Difficulty Swallowing, Anorexia Genitourinary: DENIES: Abnormal vaginal bleeding, Dysmenorrhea, Dyspareunia, Sexual dysfunction, Urinary frequency, Urinary incontinence, Urgency, Hematuria , Dysuria, Nocturia, Vaginal discharge Musculoskeletal: DENIES: Joint pain, Muscle aches, Stiffness, Joint Swelling, Back pain, Neck pain Integumentary: DENIES: Abnormal pigmentation, Pruritus, Rash, Nail changes, Breast masses, Breast skin changes, Nipple discharge Hematologic/lymphatic: DENIES: Bruising, Lymphadenopathy Immunologic/allergic: DENIES: Eczema, Urticaria Neurologic: DENIES: Abnormal gait, Headache, Localized weakness, Paresthesias, Seizures, Speech Problems, Tremor, Poor Balance Psychiatric: COMPLAINS OF: Anxiety, Mood changes, Depression, Suicidal Ideation , DENIES: Confusion, Hallucinations, Agitation, Homicidal Ideation, Delusions Past Family Social History Past Medical History Seizure disorder secondary to alcohol abuse Alcohol abuse Iron admissions for sepsis and cholecystitis May 2015 Cirrhosis Bleeding ulcers Thrombocytopenia Coagulopathy Asthma Anxiety and depression Hypertension with preeclampsia and migraines PUD Tubal ligation Perforated ulcer in the past with EGD and cautery Right parietal hemorrhage after fall in 2014 Reported Medications Reported Meds & Active Scripts Active Ibuprofen 600 Mg Tab 600 Mg PO Q8HR PRN Reported Fluoxetine (Fluoxetine HCl) 20 Mg Capsule 20 Mg PO DAILY Antabuse (Disulfiram) 500 Mg Tab 500 Mg PO DAILY Meloxicam 7.5 Mg Tab 7.5 Mg PO DAILY PRN Ventolin Hfa 18 GM Inh (Albuterol Sulfate) 90 Mcg/Act Aer 2 Puff INH Q4H PRN Lorazepam 1 Mg Tab 1 Mg PO DAILY PRN Carvedilol 3.125 Mg Tab 3.125 Mg PO BID Keppra (Levetiracetam) 500 Mg Tab 500 Mg PO BID Gabapentin 100 Mg Cap 100 Mg PO TID Allergies: Coded Allergies: Penicillin (Verified Allergy, Severe, CAN'T BREATHE, 03/03/17) Active Ordered Medications Inpatient Medications Acetaminophen (Tylenol) 650 mg Q4H PRN PO TEMP > 100.4; Start 03/04/17 at 02:00 Charcoal (Actidose-Aqua Liq) 25 gm ONCE ONCE PO/NG Last administered on 23:20; Start 03/03/17 at 23:00; Stop 03/03/17 at 23:01; Status DC Flumazenil (Romazicon Inj) 0.2 mg Q1M PRN IV PUSH SEE LABEL COMMENTS; Start at 02:00 Ketorolac Tromethamine 30 mg 30 mg ONCE ONCE IVP Last administered on 23:20; Start 03/03/17 at 23:15; Stop 03/03/17 at 23:16; Status DC Lorazepam (Ativan Inj) 2 mg Q15M PRN IV PUSH CIWA > 20; Start 03/04/17 at 02:00 Lorazepam (Ativan) 2 mg Q2H PRN PO CIWA 11-14; Start 03/04/17 at 02:00 Naloxone HCl (Narcan Inj) 0.4 mg UNSCH PRN IV SEE LABEL COMMENTS; Start at 02:00 Ondansetron HCl (Zofran Inj) 4 mg Q6H PRN IVP NAUSEA OR VOMITING; Start at 02:00 Sennosides (Senokot) 17.2 mg Q12H PRN PO MODERATE - SEVERE CONSTIPATION; Start 03/04/17 at 02:00 Sodium Chloride (NS 1000 ml Inj) 1,000 ml @ 100 mls/hr Q10H IV Last administered on 03/04/17 03:23; Start 03/04/17 at 01:59 Sodium Chloride (NS Flush) 2 ml BID IV FLUSH ; Start 03/04/17 at 09:00 Family History Father is alive and well, history of diabetes, colon cancer Mother is alive and well, history of asthma Social History Patient is , she is a [id number] mom. She has 5 grown children. No tobacco abuse. No substance abuse. She drinks heavily, approximately 2-3 beers or more a day. Physical Exam Vital Signs Vital Signs Date Time Temp Pulse Resp B/P Pulse Ox O2 Delivery O2 Flow Rate FiO2 03/04/17 08:04 98.0 90 18 110/64 96 03/04/17 06:24 21 03/04/17 05:12 98.0 66 18 121/68 97 03/04/17 03:52 86 03/04/17 02:27 89 18 118/64 99 Room Air 03/04/17 01:04 103 18 100/61 99 Room Air 03/03/17 23:49 99 18 108/60 99 Room Air 03/03/17 22:58 99 03/03/17 22:38 98.3 96 18 118/69 96 Physical Exam GENERAL: This is a well-nourished, well-developed patient, in no apparent distress. SKIN: No rashes, ecchymoses or lesions. Cool and dry. HEAD: Atraumatic. Normocephalic. No temporal or scalp tenderness. EYES: Pupils equal round and reactive. Extraocular motions intact. No scleral icterus. No injection or drainage. ENT: Nose without bleeding, purulent drainage or septal hematoma. Throat without erythema, tonsillar hypertrophy or exudate. Uvula midline. Airway patent. NECK: Trachea midline. No JVD or lymphadenopathy. Supple, nontender, no meningeal signs. CARDIOVASCULAR: Regular rate and rhythm without murmurs, gallops, or rubs. RESPIRATORY: Clear to auscultation. Breath sounds equal bilaterally. No wheezes , rales, or rhonchi. GASTROINTESTINAL: Abdomen soft, non-tender, nondistended. No hepato-splenomegaly , or palpable masses. No guarding. MUSCULOSKELETAL: Extremities without clubbing, cyanosis, or edema. No joint tenderness, effusion, or edema noted. No calf tenderness. Negative Homans sign bilaterally. NEUROLOGICAL: Awake and alert. Cranial nerves II through XII intact. Motor and sensory grossly within normal limits. Five out of 5 muscle strength in all muscle groups. Normal speech. Laboratory Laboratory Tests Test 03/03/17 03/03/17 03/03/17 03/04/17 23:22 23:30 23:32 02:24 White Blood Count 7.0 Red Blood Count 3.78 Hemoglobin 11.7 Hematocrit 34.9 Mean Corpuscular Volume 92.5 Mean Corpuscular Hemoglobin 30.9 Mean Corpuscular Hemoglobin 33.4 Concent Red Cell Distribution Width 13.3 Platelet Count 155 Mean Platelet Volume 8.0 Neutrophils (%) (Auto) 38.8 Lymphocytes (%) (Auto) 42.4 Monocytes (%) (Auto) 8.0 Eosinophils (%) (Auto) 9.8 Basophils (%) (Auto) 1.0 Neutrophils # (Auto) 2.7 Lymphocytes # (Auto) 3.0 Monocytes # (Auto) 0.6 Eosinophils # (Auto) 0.7 Basophils # (Auto) 0.1 CBC Comment DIFF FINAL Differential Comment Prothrombin Time 10.9 Prothromb Time International 1.0 Ratio Activated Partial 28.1 Thromboplast Time Sodium Level 138 Potassium Level 4.2 Chloride Level 105 Carbon Dioxide Level 22.3 Blood Urea Nitrogen 10 Creatinine 0.55 Random Glucose 103 Calcium Level 8.0 Total Bilirubin 0.5 Aspartate Amino Transf 40 (AST/SGOT) Alanine Aminotransferase 34 (ALT/SGPT) Alkaline Phosphatase 112 Total Protein 6.8 Albumin 3.1 Salicylates Level LESS THAN 1.7 Anion Gap 11 Estimat Glomerular Filtration 121 Rate Acetaminophen Level LESS THAN 2.0 Phenobarbital Level 3.7 LESS THAN 2.1 Ethyl Alcohol Level 258 Urine Opiates Screen NEG Urine Barbiturates Screen NEG Urine Amphetamines Screen NEG Urine Benzodiazepines Screen NEG Urine Cocaine Screen NEG Urine Cannabinoids Screen NEG Urine Color YELLOW Urine Turbidity CLEAR Urine pH 5.0 Urine Specific [place] 1.002 Urine Protein NEG Urine Glucose (UA) NEG Urine Ketones NEG Urine Occult Blood NEG Urine Nitrite NEG Urine Bilirubin NEG Urine Urobilinogen LESS THAN 2.0 Urine Leukocyte Esterase TRACE Urine RBC 1 Urine WBC 2 Urine Squamous Epithelial <1 Cells Urine Bacteria FEW Microscopic Urinalysis Comment CULT NOT INDICATED Test 03/04/17 03/04/17 04:16 06:04 Phenobarbital Level 3.0 2.2 Result Diagram: 03/03/17232103/03/172321 Assessment and Plan Problem List: (1) Intentional phenobarbital overdose (2) ETOH abuse (3) Asthma (4) HTN (hypertension) (5) Cirrhosis (6) History of bleeding ulcers Assessment and Plan Admit to Dr. Barnes 41-year-old female with history of anxiety depression, presented to the emergency room after intentional overdose with phenobarbital. History of alcohol abuse and seizures. Patient indicates she is under a lot of stress fighting with her children and relapse approximately 18 months ago. Last drink was yesterday. -Continue with sitter at bedside Continue with Caldera act Psychiatry has been consulted for evaluation Seizure disorder secondary to alcohol abuse, stable last seizure was 11 months ago Continue with seizure precautions Resume Keppra 500 mg by mouth twice a day Alcohol abuse, prior history of seizures, last drink was yesterday Monitor for withdrawal symptoms Librium 10 mg by mouth 3 times a day when necessary for anxiety/withdrawal symptoms -Hold Antabuse at this time Hypertension, blood pressure stable Resume home medications History of cirrhosis, stable Stable, monitor. Patient has been counseled about alcohol abuse. Asthma stable DuoNeb's 4 times a day when necessary for wheezing Home medications reviewed, initiated as indicated SCDs for DVT prophylaxis Pt. is stable to be transferred to psychiatry if necessary. Possible discharge home versus psychiatric unit after seen by psychiatry. Plan of care has been discussed with the patient, attending and registered nurse. Further management of the patient will be dependent on the hospital course This patient was seen by myself and Dr. Barnes, this H&P is written on his behalf Problem Qualifiers (1) Intentional phenobarbital overdose: Qualified Code: T42.3X2A - Intentional phenobarbital overdose, initial encounter (2) Asthma: Qualified Code: J45.909 - Uncomplicated asthma, unspecified asthma severity (3) HTN (hypertension): Qualified Code: I10 - Essential hypertension (4) Cirrhosis: Qualified Code: K70.30 - Alcoholic cirrhosis of liver without ascites Yasmine Lawrence Mar 04, 2017 08:56
[2017-03-04] MEDS: levETIRAcetam 500 MG TAB PO SCH ×2 (09:04→23:31)
[2017-03-04] MEDS: CARVEDILOL 3.125 MG TAB PO SCH ×2 (09:04→23:31)
[2017-03-04] MEDS: SODIUM CHLORIDE 0.9% FLUSH 10 ML FLUSH IV FLUSH SCH ×2 (09:04→23:31)
[2017-03-04] MEDS: IBUPROFEN 600 MG TAB PO PRN ×2 (09:04→23:43)
[2017-03-04] MEDS ORDERED: LORazepam 1 MG TAB PO PRN (11:15)
[2017-03-04] MEDS ORDERED: ALBUTEROL SULFATE 90 MCG/ACT HFA 18 GM INHALER INH PRN (11:45)
[2017-03-04] MEDS: GABAPENTIN 100 MG CAP PO SCH ×2 (13:14→18:09)
[2017-03-05] VITALS (8 sets, daily range): BP systolic 115–154; BP diastolic 65–80; PULSE 75–82; RESP 16–20; TEMP 97.4–98.6; O2SAT 97–100
--- NOTE | 2017-03-05 08:27 | HHI.PR ---
Subjective Remarks anxiety and tremors yesterday, better today no cp no sob sitter at [facility] feels better, no SI anxious to go home Objective Objective Results - Vital Signs Date Time Temp Pulse Resp B/P Pulse Ox O2 Delivery O2 Flow Rate FiO2 03/05/17 08:15 97.8 78 18 115/65 97 03/05/17 07:06 98.4 77 18 148/78 97 03/05/17 01:04 98.5 77 18 154/79 98 03/04/17 20:01 98.4 95 18 152/90 99 03/04/17 20:00 95 03/04/17 16:13 98.0 89 16 115/60 97 03/04/17 11:20 98.1 90 16 109/69 98 I/O 03/04/17 03/04/17 03/04/17 03/05/17 03/05/17 03/05/17 07:00 15:00 23:00 07:00 15:00 23:00 Intake Total 240 ml Balance 240 ml Intake Oral 240 ml # Voids 1 Result Diagram: 03/03/17 2322 03/03/17 2322 Other Results Laboratory Tests Test 03/04/17 03/04/17 03/04/17 08:34 11:10 15:00 Phenobarbital Level 4.1 2.2 3.4 ROS General: No: Fatigue, Weakness HEENT: No: Sore Throat, Dysphagia Cardiac: No: Chest Pain, Edema, Palpitations Pulmonary: No: Cough, SOB, Wheezing GI: No: Abdominal Pain, BM, Diarrhea, N/V /STAFF RESPIRATORY THERAPIST: No: Dysuria, Urgency Neuro/MS: No: Lightheaded, Confusion Psych: Anxiety, No: Depression, Other Skin: No: Itching, Rash Physical Exam Physical Exam GENERAL: This is a well-nourished, well-developed patient, in no apparent distress. SKIN: No rashes, ecchymoses or lesions. Cool and dry. HEAD: Atraumatic. Normocephalic. No temporal or scalp tenderness. EYES: Pupils equal round and reactive. Extraocular motions intact. No scleral icterus. No injection or drainage. ENT: Nose without bleeding, purulent drainage or septal hematoma. Throat without erythema, tonsillar hypertrophy or exudate. Uvula midline. Airway patent. NECK: Trachea midline. No JVD or lymphadenopathy. Supple, nontender, no meningeal signs. CARDIOVASCULAR: Regular rate and rhythm without murmurs, gallops, or rubs. RESPIRATORY: Clear to auscultation. Breath sounds equal bilaterally. No wheezes , rales, or rhonchi. GASTROINTESTINAL: Abdomen soft, non-tender, nondistended. No hepato-splenomegaly , or palpable masses. No guarding. MUSCULOSKELETAL: Extremities without clubbing, cyanosis, or edema. No joint tenderness, effusion, or edema noted. No calf tenderness. Negative Homans sign bilaterally. NEUROLOGICAL: Awake and alert. Cranial nerves II through XII intact. Motor and sensory grossly within normal limits. Five out of 5 muscle strength in all muscle groups. Normal speech. Urinary Catheter: No Vascular Central Line Catheter: No A/P Diagnosis: (1) Intentional phenobarbital overdose (2) ETOH abuse (3) Asthma (4) HTN (hypertension) (5) Cirrhosis (6) History of bleeding ulcers Assessment and Plan 41-year-old female with history of anxiety depression, presented to the emergency room after intentional overdose with phenobarbital. History of alcohol abuse and seizures. Patient indicates she is under a lot of stress fighting with her children and relapse approximately 18 months ago. Last drink was yesterday. -Continue with sitter at bedside Continue with Caldera act -phenobarb level low Psychiatry has been consulted for evaluation, nobody has seen pt. RN and medical secretary receptionist called [facility] last night and today. Will f/u Pt. cleared for discharge. Seizure disorder secondary to alcohol abuse, stable last seizure was 11 months ago Continue with seizure precautions continue Keppra 500 mg by mouth twice a day Alcohol abuse, prior history of seizures, last drink was yesterday Monitor for withdrawal symptoms Librium 10 mg by mouth 3 times a day when necessary for anxiety/withdrawal symptoms -Hold Antabuse at this time Hypertension, blood pressure stable continue home medications History of cirrhosis, stable Stable, monitor. Patient has been counseled about alcohol abuse. Asthma stable DuoNeb's 4 times a day when necessary for wheezing SCDs for DVT prophylaxis Pt. is stable to be transferred to psychiatry if necessary. Possible discharge home versus psychiatric unit after seen by psychiatry. D/W RN D/W pt D/W Dr. Barnes This patient was seen by myself and Dr. Barnes, this note is written on his behalf Problem Qualifiers (1) Intentional phenobarbital overdose: Qualified Code: T42.3X2A - Intentional phenobarbital overdose, initial encounter (2) Asthma: Qualified Code: J45.909 - Uncomplicated asthma, unspecified asthma severity (3) HTN (hypertension): Qualified Code: I10 - Essential hypertension (4) Cirrhosis: Qualified Code: K70.30 - Alcoholic cirrhosis of liver without ascites Yasmine Lawrence Mar 05, 2017 08:27
--- NOTE | 2017-03-05 08:28 | HHI.DCPOC ---
Discharge Care Plan Diagnosis: (1) Intentional phenobarbital overdose (2) ETOH abuse Your Health Problems Are: Anxiety Goals to Promote Your Health * To prevent worsening of your condition and complications * To maintain your health at the optimal level Directions to Meet Your Goals Take your medications as prescribed Follow your dietary instruction Follow activity as directed Keep your appointments as scheduled Take your immunizations and boosters as scheduled If your symptoms worsen call your PCP, if no PCP go to Urgent Care Center or Emergency Room Smoking is Dangerous to Your Health. Avoid second hand smoke Call the 24-hour hour crisis hotline for domestic abuse at [facility]. [facility] Mar 05, 2017 08:28
[2017-03-05] MEDS ORDERED: FLUoxetine HCL 20 MG CAP PO SCH (09:00)
[2017-03-05 10:03] LABS: BICARBONATE 22.1 MEQ/L (21.0-32.0); POTASSIUM 3.7 MEQ/L (3.5-5.1)
[2017-03-05] MEDS: GABAPENTIN 100 MG CAP PO SCH ×3 (10:18→18:38)
[2017-03-05] MEDS: levETIRAcetam 500 MG TAB PO SCH ×2 (10:18→20:31)
[2017-03-05] MEDS: CARVEDILOL 3.125 MG TAB PO SCH ×2 (10:18→20:00)
[2017-03-05] MEDS: SODIUM CHLORIDE 0.9% FLUSH 10 ML FLUSH IV FLUSH SCH ×2 (10:18→20:31)
[2017-03-05] MEDS: IBUPROFEN 600 MG TAB PO PRN ×2 (11:54→20:33)
--- NOTE | 2017-03-06 11:57 | PD.CONS ---
Provisional Diagnosis Admission Date Mar 04, 2017 at 00:42 [place]. Adjustment disorder with mixed disturbance of emotion and conduct History of Present Illness Service Psychiatry Consult Requested By [facility] Primary Care Physician Corey Johnson M.D. HPI 41-year-old female with significant history of alcoholism, drinking again for the last 8 months, overdosing on her dog's phenobarbital. According to reports the patient wanted to take the pills to go to sleep and "not wake up". At the time of this evaluation, March 05, 2017, 9:30 PM, the patient is not suicidal. She has been for over 20 years and has 5 children. She acknowledges much stress in her life. She acknowledges a significant problem with alcoholism. She knows she is not supposed to be drinking alcohol at this time. She understands that taking her dogs phenobarbital is not only dangerous but a sign of mental illness. The patient remains at risk for harming herself. However, she is no longer intoxicated with alcohol or drugs and she is not psychotic. Her cognition is completely intact and her mood and affect are appropriate. She is verbally abdirahman for safety and reports no suicidal or homicidal ideation, plan or intent. Review of Systems Except as stated in HPI: all other systems reviewed are Neg Past Family Social History Coded Allergies: Penicillin (Verified Allergy, Severe, CAN'T BREATHE, 03/03/17) Active Scripts Ibuprofen 600 Mg [id number] Mg PO Q8HR PRN (PAIN) #20 TAB Ref 0 Prov:Mariela Blue DO 12/03/16 Reported Medications Fluoxetine 20 Mg [id number] Mg PO DAILY #30 CAP Ref 0 03/03/17 Disulfiram (Antabuse)500 Mg Oqr123 Mg PO DAILY Ref 0 12/02/16 Meloxicam 7.5 Mg Tab7.5 Mg PO DAILY PRN (ASTHMA PAIN) Ref 0 12/02/16 Albuterol 18 GM Inh (Ventolin Hfa 18 GM Inh)90 Mcg/Act Aer2 Puff INH Q4H PRN ( SHORTNESS OF BREATH) #1 INHALER Ref 0 08/15/16 Lorazepam 1 Mg Tab1 Mg PO DAILY PRN (ANXIETY) Ref 0 08/15/16 Carvedilol 3.125 Mg Tab3.125 Mg PO BID #60 TAB Ref 0 08/15/16 Levetiracetam (Keppra)500 Mg Ffy750 Mg PO BID #60 TAB Ref 0 08/15/16 Gabapentin 100 Mg [id number] Mg PO TID #90 CAP Ref 0 08/15/16 Discontinued Reported Medications Fluoxetine 20 Mg Cap20 Mg PO DAILY #30 CAP Ref 0 08/15/16 Discontinued Scripts Promethazine Supp (Phenergan Supp)25 Mg Supp25 Mg RECTAL Q6H PRN (NAUSEA OR VOMITING) #20 SUPP Ref 0 Prov:Geovani Sen MD 12/09/16 Ciprofloxacin (Cipro)500 Mg [id number] Mg PO BID 7 Days Ref 0 Prov:Geovani Sen MD 12/09/16 Family History Positive for alcoholism. Social History Patient is currently unemployed. She lives at home with her and 5 children. She has a multiyear history of alcoholism with periods of sobriety, the last of which ended 8 months ago. Patient's Strengths (min. 2) Verbal and has access to healthcare. Physical Exam Vital Signs Vital Signs Date Time Temp Pulse Resp B/P Pulse Ox O2 Delivery O2 Flow Rate FiO2 03/05/17 21:06 99 03/05/17 20:09 98.6 79 20 133/75 03/04/17 07:45 21 03/04/17 02:27 Room Air I/O 03/05/17 03/05/17 03/06/17 08:00 16:00 00:00 Intake Total 480 ml Balance 480 ml Mental Status Examination Speech: Unremarkable Orientation: x3 Memory: Unremarkable Thought Process: Organized, Goal Directed Thought Content: Unremarkable Hallucination Type: None Attention and Concentration: Good Suicidal Ideation: No Previous Suicide Attempts: No Homicidal Ideation: No Previous Homicide Attempts: No Insight: Fair Judgment: WNL Affect: Good Mood: Appropriate Motor Activity: Normal gait Assessment & Plan Problem List: (1) Adjustment disorder with mixed disturbance of emotions and conduct ICD Code: F43.25 Assessment & Plan Estimated LOS: days although the patient admits to an intentional overdose of her dog's phenobarbital, possibly causing lethal results, she is currently competent and abdirahman for safety. She acknowledges multiple stressors in her life with regard to her family which contribute to her alcoholism. However , this physician counseled the patient that using excuses to drink alcohol are inappropriate. Patient advised she is still alcoholic and that she needs to attend AA meetings, obtain a sponsor, stop drinking, etc. This physician feels that psychiatric treatment will not be successful if the patient does not address her alcoholism first. Placing patient on psychotropic medicines will also not work and will add to the dangers of her alcoholism. Therefore, patient 's Caldera act was lifted and she was advised to seek assistance at [facility] for alcohol detox and rehabilitation. Duke Venegas MD Mar 06, 2017 11:57
== END 2017-03-05 23:48 | disposition home or self-care (01) ==
LOC: NEPC 22:30 → INTOOBSV 03-04 00:42 → NEDA 03-04 00:42 → NEPGCP 03-04 03:16 → NEDH 03-04 12:39 → NEPGCP 03-04 12:41 → UNDODISIN 03-05 23:48
PROVIDERS: ADMIT Specialist; ATTEND Specialist
DX: T42.3X2A Poisoning by barbiturates, intentional self-harm, initial encounter (principal); K70.30 Alcoholic cirrhosis of liver without ascites; F10.188 Alcohol abuse with other alcohol-induced disorder; G40.509 Epileptic seizures related to external causes, not intractable, without status epilepticus; F43.25 Adjustment disorder with mixed disturbance of emotions and conduct; I10 Essential (primary) hypertension; J45.909 Unspecified asthma, uncomplicated; Z79.899 Other long term (current) drug therapy
CPT/HCPCS: 80048; 80053; 80184; 80307; 81001; 84703; 85025; 85610; 85730; 93005; 96374; 96375; 99285; G0378; J1885; J2405; J7030

== ENCOUNTER 2017-12-20 16:32 | Emergency (ER) | payer MEDICAID, OTHER ==
[~2017-12-20] VITALS: Ht 162.6 cm; Wt 70.0 kg
[~2017-12-20 16:32] MED LIST changes: -CIPR-9 PO; +FLUO20CA12 PO; -FLUO20CA4 PO; +MELO7.5T27 PO; -MELO7.5T4 PO; -PROM1SUP7 RECTAL
[2017-12-20 16:34] VITALS: BP 134/77; PULSE 102; RESP 15; TEMP 97.8; O2SAT 99
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
[2017-12-20] MEDS ORDERED: ACETAMINOPHEN/HYDROcodone 325 MG/5 MG TAB PO ONE (17:30)
[2017-12-20] MEDS ORDERED: TOPI1CAP6 PO (17:34)
[2017-12-20] MEDS ORDERED: CYCL10TA PO (17:34)
--- NOTE | 2017-12-20 17:43 | RADRPT ---
EXAM DATE/TIME: 12/20/2017 17:25 [facility] COMPARISON: No previous studies available for comparison. INDICATIONS : Right anterior foot pain, denies injury MEDICAL HISTORY : Hypertension. asthma. SURGICAL HISTORY : None. ENCOUNTER: Initial ACUITY: 3 days PAIN SCORE: 7/10 LOCATION: Right Foot FINDINGS: Three view examination of the right foot demonstrates no dislocation, or fracture. Minimal soft tissu e swelling seen along the dorsum of the forefoot. The tarsal bones appear intact. The interphalange al and metatarsophalangeal joints are intact. The calcaneus is intact. Bony mineralization is josep l. CONCLUSION: Mild soft tissue swelling otherwise intact bony structures. No evidence of acute fracture or significant arthropathy. Long Pratt MD on December 20, 2017 at 17:40 Board Certified Radiologist. This report was verified electronically.
[2017-12-20] MEDS ORDERED: BACT800T5 PO (17:51)
[2017-12-20] MEDS ORDERED: IBUP1TAB7 PO (17:51)
[2017-12-20] MEDS ORDERED: SULFAMETHOXAZOLE-TRIMETHOPRIM DS 800-160 MG TAB PO ONE (18:00)
== END 2017-12-20 18:26 | disposition home or self-care (01) ==
LOC: NEPD 16:32
DX: L03.115 Cellulitis of right lower limb (principal); M19.90 Unspecified osteoarthritis, unspecified site; J45.909 Unspecified asthma, uncomplicated; F41.9 Anxiety disorder, unspecified; F32.9 Major depressive disorder, single episode, unspecified
CPT/HCPCS: 73630; 99283

== ENCOUNTER 2018-01-04 09:51 | Emergency (ER) | payer SELFPAY ==
[~2018-01-04] VITALS: Ht 162.6 cm; Wt 76.2 kg
[~2018-01-04 09:51] MED LIST changes: -ANTA500T PO; +BACT800T5 PO; +CYCL10TA PO; +IBUP1TAB7 PO; +TOPI1CAP6 PO
[2018-01-04 09:54] VITALS: BP 128/77; PULSE 73; RESP 18; TEMP 97.7; O2SAT 100
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
[2018-01-04] MEDS ORDERED: predniSONE 20 MG TAB PO ONE (10:15)
--- NOTE | 2018-01-04 10:36 | RADRPT ---
EXAM DATE/TIME: 01/04/2018 10:21 [facility] COMPARISON: FOOT RIGHT COMPLETE ([id number]), December 20, 2017, 17:25. INDICATIONS : Right top of foot pain. Was bitten by a puppy 3 weeks ago. Pain since then. MEDICAL HISTORY : Hypertension. Asthma. SURGICAL HISTORY : None. ENCOUNTER: [facility] ACUITY: 3 weeks PAIN SCORE: 7/10 LOCATION: Right Foot. FINDINGS: Three view examination of the right foot demonstrates no soft tissue swelling, dislocation, or fractu re. The tarsal bones appear intact. The interphalangeal and metatarsophalangeal joints are intact. The calcaneus is intact. Calcaneal spurring. Bony mineralization is normal. CONCLUSION: 1. No acute fracture or dislocation. 2. No radiopaque foreign bodies. Savage Malhotra MD on January 04, 2018 at 10:32 Board Certified Radiologist. This report was verified electronically.
[2018-01-04] MEDS ORDERED: PRED20 PO (10:44)
== END 2018-01-04 11:02 | disposition home or self-care (01) ==
LOC: NEPK 09:51
DX: M65.871 Other synovitis and tenosynovitis, right ankle and foot (principal); I10 Essential (primary) hypertension; J45.909 Unspecified asthma, uncomplicated; M19.90 Unspecified osteoarthritis, unspecified site; W54.0XXA Bitten by dog, initial encounter; Z88.0 Allergy status to penicillin
CPT/HCPCS: 73630; 99283; J7512

== ENCOUNTER 2018-01-12 16:22 | Emergency (ER) | payer SELFPAY ==
[~2018-01-12] VITALS: Ht 162.6 cm; Wt 76.0 kg
[~2018-01-12 16:22] MED LIST changes: -BACT800T5 PO; +PRED20 PO
[2018-01-12 16:27] VITALS: BP 143/93; PULSE 118; RESP 18; TEMP 98.2; O2SAT 97
[2018-01-12] MEDS ORDERED: TYLETAB34 PO (17:54)
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
== END 2018-01-12 18:06 | disposition home or self-care (01) ==
LOC: NEPD 16:22
DX: M79.671 Pain in right foot (principal)
CPT/HCPCS: 99283